=== PATIENT | female | born 1945 | race Caucasian/White ===

== ENCOUNTER → 2020-01-05 14:03 | Outpatient (BNVA) | payer MEDICARE, OTHER, SELFPAY | PROVIDERS: Referring Provider Dermatology; Visit Provider Dermatology | DX: L82.1 Other seborrheic keratosis (principal); I78.1 Nevus, non-neoplastic; D18.01 Hemangioma of skin and subcutaneous tissue; D17.30 Benign lipomatous neoplasm of skin and subcutaneous tissue of unspecified sites | CPT/HCPCS: 99203 ==